=== PATIENT | female | born 1945 | race Caucasian/White ===

== ENCOUNTER → 2023-09-13 11:45 | Outpatient (REF) | payer MEDICARE, OTHER, SELFPAY | LOC: DHCBC/DCA 11:45 | PROVIDERS: ATTENDING PHYSICIAN Nuclear Medicine Nuclear Cardiology; FAMILY PHYSICIAN Family Medicine | DX: R06.02 Shortness of breath (principal); R53.83 Other fatigue; I35.1 Nonrheumatic aortic (valve) insufficiency; R00.0 Tachycardia, unspecified | CPT/HCPCS: 78452; 93017; A9500; J2785 ==

== ENCOUNTER → 2024-04-25 11:22 | Outpatient (REF) | payer MEDICARE, OTHER, SELFPAY | LOC: WDC 11:22 | PROVIDERS: ATTENDING PHYSICIAN Obstetrics & Gynecology; FAMILY PHYSICIAN Family Medicine | DX: Z12.31 Encounter for screening mammogram for malignant neoplasm of breast (principal) | CPT/HCPCS: 77063; 77067 ==

== ENCOUNTER → 2024-07-07 09:25 | Outpatient (REF) | payer MEDICARE, OTHER, SELFPAY | LOC: RAD 09:25 | PROVIDERS: ATTENDING PHYSICIAN Obstetrics & Gynecology; FAMILY PHYSICIAN Family Medicine | DX: M85.88 Other specified disorders of bone density and structure, other site (principal) | CPT/HCPCS: 77080 ==

== ENCOUNTER → 2024-11-25 10:20 | Outpatient (REF) | payer MEDICARE, OTHER, SELFPAY | LOC: RAD 10:20 | PROVIDERS: ATTENDING PHYSICIAN Family Medicine | DX: R10.84 Generalized abdominal pain (principal) | CPT/HCPCS: 74176 ==